=== PATIENT | female | born 1975 | race African-American/Black ===

== ENCOUNTER 2016-11-06 07:49 | Emergency (ER) | payer OTHER ==
--- NOTE | ~2016-11-06 | CR151 ---
[facility] A Service of [facility] & [facility] RADIOLOGY TEXT RESULTS PATIENT: SAVANAH GAO LOCATION: [facility] : 71 UNIT #: [id number] AGE: [address]: Lanette Pena APRN SEX: F ORDER DR: [id number] [facility] [address] [place], [place] [address] [id number] E MR#: [id number] Acc #: [id number] NAME: SAVANAH GAO : 1975 SEX: F STUDY DATE/TIME: 11/06/2016 7:27 UNIT: [facility] ROOM: STUDY DESCRIPTION: CR Hip Min 2 Views Rt Attending Physician: Lanette Pena A.P.R.N. Ordering Physician: Ed Doctor [id number] [facility] Primary Care Physician: Mario Luis M.D. MEDICAL IMAGING REPORT This report is preliminary unless electronic signature is present EXAM Right hip INDICATION Right hip pain status post twisting the right hip. FINDINGS AP view of the pelvis and frogleg lateral view of the right hip compared to 10/22/2016. There is no acute fracture or dislocation. There is mild superior joint space narrowing. Sacroiliac joints are normal. IMPRESSION No acute findings. Dictated by... Hair Herrmann M.D. THIS IS AN ELECTRONICALLY VERIFIED REPORT Hair Herrmann M.D. at 11/06/2016 9:59 AM CRISTINE/akash TD: 11/06/2016 08:10 JOB #: [id number] MEDICAL IMAGING REPORT Page 1 of 1 COPY
== END 2016-11-06 08:20 | disposition home or self-care (01) ==
LOC: CED 07:49
DX: S76.011A Strain of muscle, fascia and tendon of right hip, initial encounter (principal); M54.31 Sciatica, right side; F17.210 Nicotine dependence, cigarettes, uncomplicated; W01.0XXA Fall on same level from slipping, tripping and stumbling without subsequent striking against object, initial encounter; Y92.009 Unspecified place in unspecified non-institutional (private) residence as the place of occurrence of the external cause
CPT/HCPCS: 73502; 99283